=== PATIENT | male | born 1980 | race Caucasian/White ===

== ENCOUNTER → 2021-03-29 10:29 | Outpatient (CLI) | payer OTHER, SELFPAY ==
[2021-03-29 11:17] LABS: COVID19 -Nasal RAPID Negative (Negative)
== END ==
PROVIDERS: Visit Provider Specialist
DX: Z20.822 Contact with and (suspected) exposure to COVID-19 (principal)
CPT/HCPCS: 87635; C9803

== ENCOUNTER 2021-04-01 12:18 | Day surgery (SDC) | payer OTHER, SELFPAY ==
[2021-03-29 08:18] VITALS: BMI 21.2
[2021-04-01] VITALS (11 sets, daily range): BP systolic 126–145; BP diastolic 71–90; PULSE 67–83; RESP 14–26; TEMP 36.5–37.1; O2SAT 93–99; BMI 21.2
[2021-04-01] MEDS: LACTATED RINGERS 1,000 ML 42 ML IV ×2 (13:16→14:48)
--- NOTE | 2021-04-01 13:49 | PM.PREOP ---
Pre-operative Note COVID-19 COVID-19 status: Negative Result date/Date tested (Pos, Neg/Pending): 03/29/21 Interval Note History & Physical reviewed/Exam performed by Physician: Yes Changes to H&P: No
[2021-04-01] MEDS: CEFAZOLIN 2 GM/100 ML FROZ.PIGGY IV (14:04)
--- NOTE | 2021-04-01 14:41 | SUR.OPER ---
Supine on padded OR bed, head on pillow,bilateral arms padded and tucked at side, legs uncrossed, safety belt at thigh, tape over blanket over lower legs .
[2021-04-01] MEDS: BUPIVACAINE 0.25% W/ EPI 30 ML VIAL 60 ML INJ (14:48)
--- NOTE | 2021-04-01 16:11 | P.OP_ITS ---
Operative Date/Time/Diagnoses Date of procedure: 04/01/21 Time of procedure: 16:11 Pre-op diagnosis: Right, possible left inguinal hernia Post-op diagnosis: other (Right direct inguinal hernia; no left inguinal hernia) Procedure & Clinicians Procedure: Laparoscopic right inguinal hernia repair with mesh Same procedure as scheduled: Yes Indications: Right inguinal hernia Surgeon: Mary Hsu Click Yes if Unassisted: Yes Anesthesia Type: General Operative Notes Findings: Deep direct right inguinal hernia with incarcerated preperitoneal fat; partial urethral obstruction (found during huynh catheter placement) Specimen(s): none sent Prosthetic devices, grafts, tissues, transplants, or devices: Large BARD 3D max right inguinal mesh Estimated Blood Loss (mL): 3 Procedure in detail: The patient was brought into the operating room and placed supine on the OR table. Sequential compression devices were placed on both legs and turned on. Appropriate perioperative antibiotics were given prior to the start of surgery. General anesthesia was induced the patient was intubated. A Huynh catheter was placed sterilely in the bladder. During placement of the Huynh catheter, we were not able to pass a 16 Bh[place]anese Huynh catheter, or a 16 Bhutanese coude catheter. An 18 Bhutanese coude catheter passed without difficulty. There was some blood at the urethral meatus, an some faint pink tinge to the urine The abdomen was prepped and draped in sterile fashion. Surgical time-out was conducted. Local anesthetic was injected under the skin just superior to the umbilicus and a 5 mm vertical incision was made at this site. The umbilical stalk was grasped with a Judy and elevated. A Veress needle was passed through the fascia into proper position. The position was tested with a saline drop test which was appropriate for intra-abdominal Veress needle placement. The abdomen was then insufflated in the usual fashion. Once insufflated to 15 mm Hg the Veress needle was removed and a 5 mm optical trocar was placed under direct vision using a 5 mm 30 degree scope. Once the camera was inside the abdomen I took a look around. There was no injury from port placement. Two additional ports were placed in a similar fashion in the right and left mid clavicular line at the level of the umbilicus, one handbreadth lateral to the umbilicus. The umbilical port was upsized to a 10mm port. Attention was turned to the pelvis, and both inguinal regions were evaluated. On the left side no hernia defect was seen. On the right side a deep direct hernia defect was seen. Beginning on the right side local anesthetic was in the infiltrated into the abdominal wall using 0.25% Marcaine with epi, in the region of the expected peritoneal incision. Metzenbaum scissors attached to cautery were then used to incise the peritoneum transversely from the midline laterally to the ASIS, 10 cm superior to the inguinal hernia defect. The peritoneal flap was developed down to the inguinal hernia defects. When I reached the defect I found a deep direct defect with incarcerated preperitoneal fat within it. The preperitoneal fat was dissected out and reduced from the defect. Once the flap had been fully developed and the cord structures were completely exposed, and the hernia defect had been fully evaluated, I then exposed the pubic tubercle and push down the bladder so that there was space for good mesh placement. A large 3DMax macro porous mesh was then brought into the field. I placed it through the 10 mm port and positioned it within the surgical defect covering the direct, indirect, and femoral space with 5 cm overlap in each direction. I then secured the mesh to the abdominal wall at its superior edge, far away from the triangle of doom and the triangle of pain, to keep it from rotating. These tacks were placed avoiding the epigastric vessels as well. Once the mesh was secured in place I brought up the peritoneal flap. There was no clam shelling or bending of the mesh when the peritoneal flap was brought up. I then secured the peritoneum up to the abdominal wall using the same surgical tacker, with dissolvable tacks. There was no gapping of the peritoneal flap or exposed mesh. At this point the mesh was well positioned, secured, and well covered. There was no exposed mesh, no bleeding, and the peritoneal flaps were in good position. I then infiltrated the abdominal wall in the area of dissection with an additional 20 mL of 0.25% Marcaine with epi, for a total of 40mL for the case. At this point the umbilical port site was closed with 0 Vicryl suture in the fascia using a Devin-Vielka suture Passer. Insufflation was then removed from the abdomen, and the umbilical port site was closed with 3-0 Vicryl in the subcutaneous layers, and 4 Monocryl in the skin. The other 2 port sites were closed with 4 Monocryl in the skin. Each port site was sealed with Dermabond. Local anesthetic was given at each of the port sites and in the fascia. This concluded the procedure. At this point the needle sponge and instrument counts were correct. Patient was awakened from anesthesia and extubated. The Huynh catheter was removed, and the testicles were brought down to ensure they were in proper position. The patient was transferred to the postanesthesia care unit in stable condition. Complications: none Post-operative Condition: stable Disposition: PACU Plan for aftercare: Patient will be discharged home. He will be given instructions to follow-up with a urologist soon as possible for the partial obstruction of his urethra.
[2021-04-01] MEDS: fentaNYL 100 MCG/2 ML INJ IV ×2 (16:22→16:32)
[2021-04-01] MEDS: OXYCODONE/ACETAMINOPHEN 5/325 TABLET 1 TAB PO (16:30)
== END 2021-04-01 17:29 | disposition home or self-care (01) ==
PROVIDERS: Referring Provider Surgery; Visit Provider Surgery
PROC: 0YQ54ZZ Repair Right Inguinal Region, Percutaneous Endoscopic Approach (ICD-10-PCS; CPT 49650; principal; 2021-04-01 13:45)
DX: K40.90 Unilateral inguinal hernia, without obstruction or gangrene, not specified as recurrent (principal); F17.210 Nicotine dependence, cigarettes, uncomplicated; N13.8 Other obstructive and reflux uropathy
CPT/HCPCS: 49650; C1781; J0690; J1100; J2250; J2405; J2704; J3010